=== PATIENT | female | born 1995 | race Caucasian/White ===

== ENCOUNTER 2018-09-19 22:35 | Emergency (ER) | payer OTHER ==
[~2018-09-19] VITALS: Ht 167.6 cm; Wt 55.2 kg
[2018-09-19 22:55] VITALS: BP 131/74
[2018-09-19] MEDS ORDERED: ketorolac tromethamine 15mg/ml inj. IM ONE (23:10)
[2018-09-19] MEDS ORDERED: silver sulfadiazine cream 400gm jar TP STA (23:46)
[2018-09-20] MEDS ORDERED: HYDR-3965 PO (00:11)
[2018-09-20] MEDS ORDERED: SILV20CR13 TOP (00:11)
== END 2018-09-20 00:27 | disposition home or self-care (01) ==
LOC: ER 22:36
DX: T23.241A Burn of second degree of multiple right fingers (nail), including thumb, initial encounter (principal); Z79.899 Other long term (current) drug therapy; X10.2XXA Contact with fats and cooking oils, initial encounter; Y93.G3 Activity, cooking and baking; Y92.89 Other specified places as the place of occurrence of the external cause; Y99.8 Other external cause status
CPT/HCPCS: 16020; 96372; 99284; J1885